=== PATIENT | female | born 1995 | race Two or more races ===

== ENCOUNTER 2022-08-10 18:16 | Emergency (ER) | payer MEDICAID, OTHER ==
[~2022-08-10] VITALS: Ht 147.3 cm; Wt 67.0 kg
[2022-08-10] MEDS ORDERED: PROMETHAZINE HCL 25 MG/ML 1ML IV ONE (18:30)
[2022-08-10] MEDS ORDERED: SODIUM CHLORIDE 0.9% 1,000 ML IVB ONE (18:30)
[2022-08-10 19:12] LABS: Urine Bacteria MANY /hpf (None Seen); Urine Blood Negative /uL (Negative); Urine Hyaline Cast FEW /lpf (0 - 2); Urine Mucus MANY (None Seen); Urine Specific Gravity 1.024 (1.001-1.035); Urine WBC 84 /hpf (0 - 5); Urine WBC Clumps PRESENT /hpf (None Seen)
[2022-08-10 19:21] LABS: Basophils # (auto) 0.1 10 ^3/uL (0-0.2); Basophils % (auto) 0.4 % (0.0-2.0); Eosinophils # (auto) 0 10 ^3/uL (0-0.8); Eosinophils % (auto) 0.3 % (0.0-7.0); Hematocrit 41.1 % (36.0-46.0); Hemoglobin 13.9 g/dL (12.2-16.2); Mean Corpuscular Hemoglobin 27.9 pg (28.0-32.0); Mean Corpuscular Hgb Conc. 33.7 g/dL (32.0-36.0); Mean Corpuscular Volume 82.8 fL (80.0-100.0); Monocytes # (auto) 0.7 10 ^3/uL (0-1.3); Monocytes % (auto) 5.7 % (0.0-12.0); Neutrophils % (auto) 76.6 % (37.0-80.0); Nucleated Red Blood Cells % 0.1 %; Red Blood Cells 4.97 10^6/uL (4.0-5.20); Red Cell Distribution Width 15.1 % (11.8-14.3); White Blood Cell 11.7 10^3/uL (4.4-10.8)
[2022-08-10 19:29] LABS: Albumin 4.1 g/dL (3.4-5.0); Calcium 9.7 mg/dL (8.5-10.1)
[2022-08-10 19:33] LABS: BUN/Creatinine Ratio 14.7; Bilirubin, Total 0.9 mg/dL (0.2-1.0); Total Protein 7.5 g/dL (6.4-8.2)
[2022-08-10] MEDS ORDERED: NITROFURANTOIN 100 mg CAP PO ONE (19:45)
[2022-08-10] MEDS ORDERED: NITR-87 PO (20:00)
[2022-08-10] MEDS ORDERED: ONDA-144 PO (20:00)
[2022-08-10 22:16] VITALS: BP 122/71
== END 2022-08-10 23:08 | disposition home or self-care (01) ==
LOC: ER 18:16
DX: O21.0 Mild hyperemesis gravidarum (principal); O23.31 Infections of other parts of urinary tract in pregnancy, first trimester; Z3A.10 10 weeks gestation of pregnancy; Z79.899 Other long term (current) drug therapy
CPT/HCPCS: 36415; 80053; 81001; 82010; 84702; 85025; 99283; J2550